=== PATIENT | female | born 1940 | race Caucasian/White ===

== ENCOUNTER 2016-08-16 14:34 | Emergency (ER) | payer OTHER ==
[~2016-08-16] VITALS: Ht 162.6 cm; Wt 60.0 kg
[2016-08-16 14:37] VITALS: BP 196/76; PULSE 94; RESP 12; TEMP 99.1; O2SAT 98
--- NOTE | 2016-08-16 17:09 | PD ---
HPI Chief Complaint: Abdominal Pain Time Seen by Provider: 17:09 Travel History International Travel<30 days: No Contact w/Intl Traveler<30days: No Traveled to known affect area: No History of Present Illness HPI 76-year-old female with newly diagnosed stage IV colon cancer presents to the emergency department for evaluation. Patient was diagnosed at [facility]. Due to insurance, she was unable to start treatment and follow-up with Dr. Limon there. A referral was placed to Dr. Medina here at the [facility]. Patient has been unable to get an appointment but while sitting in the triage area, was called and an appointment is scheduled with him tomorrow. Patient is accompanied by family and they're concerned about the constant loose bowel movements. She has had diarrhea multiple times a day with mild abdominal cramping but no significant pain. It has not been bloody. She has been increasingly weak and they're worried that she may be dehydrated. Patient denies any chest pain or tightness. No difficulty breathing. She does report night sweats and frequent bowel movements. No other symptoms to report. PFSH Past Medical History Cancer: Yes Social History Alcohol Use: No Tobacco Use: No Substance Use: No Allergies-Medications (Allergen,Severity, Reaction): Coded Allergies: No Known Allergies (Unverified , 08/16/16) Reported Meds & Prescriptions Reported Meds & Active Scripts Active Reported Alprazolam 0.25 Mg Tab 0.25 Mg PO TID PRN Pantoprazole (Pantoprazole Sodium) 40 Mg Tab 40 Mg PO DAILY Ferrous Fumarate 324 Mg Tab 325 Mg PO DAILY Zofran (Ondansetron HCl) 4 Mg Tab 4 Mg PO TID PRN Review of Systems Except as stated in HPI: all other systems reviewed are Neg Physical Exam Narrative GENERAL: Well-nourished female patient, in no acute distress SKIN: Warm and dry. Right subclavian port in place. HEAD: Atraumatic. Normocephalic. EYES: Pupils equal and round. No scleral icterus. No injection or drainage. ENT: No nasal bleeding or discharge. Mucous membranes pink and moist. NECK: Trachea midline. No JVD. CARDIOVASCULAR: Elevated rate and rhythm. No murmur appreciated. RESPIRATORY: No accessory muscle use. Clear to auscultation. Breath sounds equal bilaterally. GASTROINTESTINAL: Abdomen soft, non-tender, nondistended. Hepatic and splenic margins not palpable. MUSCULOSKELETAL: No obvious deformities. No clubbing. No cyanosis. No edema. NEUROLOGICAL: Awake and alert. No obvious cranial nerve deficits. Motor grossly within normal limits. Normal speech. PSYCHIATRIC: Appropriate mood and affect; insight and judgment normal. Data Data Last Documented VS Vital Signs Date Time Temp Pulse Resp B/P Pulse Ox O2 Delivery O2 Flow Rate FiO2 08/16/16 19:29 84 16 138/64 96 Room Air 08/16/16 14:37 99.1 Orders Basic Metabolic Panel (Bmp) (08/16/16 16:54) Complete Blood Count With Diff (08/16/16 16:54) Lactic Acid (08/16/16 16:54) Prothrombin Time / Inr (Pt) (08/16/16 16:54) Act Partial Throm Time (Ptt) (08/16/16 16:54) Urinalysis - C+S If Indicated (08/16/16 16:54) Influenzae A/B Antigen (08/16/16 16:54) Iv Access Insert/Monitor (08/16/16 19:51) Ecg Monitoring (08/16/16 19:51) Sodium Chlor 0.9% 1000 Ml Inj (Ns 1000 M (08/16/16 19:51) Labs Laboratory Tests Test 08/16/16 17:20 White Blood Count 14.0 TH/MM3 Red Blood Count 4.13 MIL/MM3 Hemoglobin 9.3 GM/DL Hematocrit 29.5 % Mean Corpuscular Volume 71.5 FL Mean Corpuscular Hemoglobin 22.5 PG Mean Corpuscular Hemoglobin 31.5 % Concent Red Cell Distribution Width 22.7 % Platelet Count 538 TH/MM3 Mean Platelet Volume 7.3 FL Neutrophils (%) (Auto) 74.6 % Lymphocytes (%) (Auto) 13.5 % Monocytes (%) (Auto) 11.1 % Eosinophils (%) (Auto) 0.6 % Basophils (%) (Auto) 0.2 % Neutrophils # (Auto) 10.4 TH/MM3 Lymphocytes # (Auto) 1.9 TH/MM3 Monocytes # (Auto) 1.6 TH/MM3 Eosinophils # (Auto) 0.1 TH/MM3 Basophils # (Auto) 0.0 TH/MM3 CBC Comment AUTO DIFF Differential Comment AUTO DIFF CONFIRMED Platelet Estimate HIGH Platelet Morphology Comment NORMAL Ovalocytes 1+ Prothrombin Time 12.7 SEC Prothromb Time International 1.1 RATIO Ratio Activated Partial 31.9 SEC Thromboplast Time Sodium Level 133 MEQ/L Potassium Level 3.6 MEQ/L Chloride Level 96 MEQ/L Carbon Dioxide Level 28.4 MEQ/L Anion Gap 9 MEQ/L Blood Urea Nitrogen 7 MG/DL Creatinine 0.55 MG/DL Estimat Glomerular Filtration 108 ML/MIN Rate Random Glucose 110 MG/DL Lactic Acid Level 1.4 mmol/L Calcium Level 8.7 MG/DL MDM Medical Decision Making Medical Screen Exam Complete: Yes Emergency Medical Condition: Yes Medical Record Reviewed: Yes Differential Diagnosis Metastatic disease versus electrolyte abnormality versus gastroenteritis versus influenza Narrative Course 76-year-old female presents to emergency department for evaluation. Workup was initiated in triage. Once a medical bed becomes available, patient will be transferred and care assumed by the provider. Condition: Stable Dejah Vera Aug 16, 2016 17:09
[2016-08-16 17:55] LABS: AUTOMATED NEUTROPHIL # 10.4 TH/MM3 (1.8-7.7); BASOPHIL % 0.2 % (0.0-2.0); EOSINOPHIL # 0.1 TH/MM3 (0-0.4); EOSINOPHIL % 0.6 % (0.0-4.0); HEMATOCRIT 29.5 % (35.0-46.0); LYMPH % 13.5 % (9.0-44.0); LYMPHOCYTE # 1.9 TH/MM3 (1.0-4.8); MEAN CELL VOLUME 71.5 FL (80.0-100.0); MEAN CORPUSCULAR HEMOGLOBIN 22.5 PG (27.0-34.0); MEAN CORPUSCULAR HGB CONC 31.5 % (32.0-36.0); MONO % 11.1 % (0.0-8.0); NEUT % 74.6 % (16.0-70.0); PLATELET COUNT 538 TH/MM3 (150-450); RED BLOOD COUNT 4.13 MIL/MM3 (4.00-5.30); RED CELL DISTRIBUTION WIDTH 22.7 % (11.6-17.2)
[2016-08-16 17:57] LABS: HEMO FLAGS AUTO DIFF
[2016-08-16 18:08] LABS: BICARBONATE 28.4 MEQ/L (21.0-32.0); POTASSIUM 3.6 MEQ/L (3.5-5.1)
[2016-08-16 18:11] LABS: APTT (PATIENT) 31.9 SEC (24.3-30.1); INTERNATIONAL NORMALIZED RATIO 1.1 RATIO; PROTHROMBIN TIME - PATIENT 12.7 SEC (9.8-11.6)
[2016-08-16 18:20] LABS: OVALOCYTES 1+ (NORMAL); PLATELET ESTIMATE SMEAR HIGH (NORMAL); PLATELET MORPHOLOGY NORMAL (NORMAL); SCAN/DIFF AUTO DIFF CONFIRMED
[2016-08-16 19:29] VITALS: BP 138/64; PULSE 84; RESP 16; O2SAT 96
[2016-08-16] MEDS ORDERED: ALPR0.25 PO (19:43)
[2016-08-16] MEDS ORDERED: PANT40TA3 PO (19:43)
[2016-08-16] MEDS ORDERED: FERR324T8 PO (19:43)
[2016-08-16] MEDS ORDERED: ZOFR4TAB PO (19:43)
[2016-08-16] MEDS ORDERED: SODIUM CHLOR 0.9% 1000 ML INJ 1,000 ML IV SCH (19:51)
--- NOTE | 2016-08-16 20:33 | PD ---
Data Data Last Documented VS Vital Signs Date Time Temp Pulse Resp B/P Pulse Ox O2 Delivery O2 Flow Rate FiO2 08/16/16 19:29 84 16 138/64 96 Room Air 08/16/16 14:37 99.1 Orders Basic Metabolic Panel (Bmp) (08/16/16 16:54) Complete Blood Count With Diff (08/16/16 16:54) Lactic Acid (08/16/16 16:54) Prothrombin Time / Inr (Pt) (08/16/16 16:54) Act Partial Throm Time (Ptt) (08/16/16 16:54) Urinalysis - C+S If Indicated (08/16/16 16:54) Influenzae A/B Antigen (08/16/16 16:54) Iv Access Insert/Monitor (08/16/16 19:51) Ecg Monitoring (08/16/16 19:51) Sodium Chlor 0.9% 1000 Ml Inj (Ns 1000 M (08/16/16 19:51) Labs Laboratory Tests Test 08/16/16 17:20 White Blood Count 14.0 TH/MM3 Red Blood Count 4.13 MIL/MM3 Hemoglobin 9.3 GM/DL Hematocrit 29.5 % Mean Corpuscular Volume 71.5 FL Mean Corpuscular Hemoglobin 22.5 PG Mean Corpuscular Hemoglobin 31.5 % Concent Red Cell Distribution Width 22.7 % Platelet Count 538 TH/MM3 Mean Platelet Volume 7.3 FL Neutrophils (%) (Auto) 74.6 % Lymphocytes (%) (Auto) 13.5 % Monocytes (%) (Auto) 11.1 % Eosinophils (%) (Auto) 0.6 % Basophils (%) (Auto) 0.2 % Neutrophils # (Auto) 10.4 TH/MM3 Lymphocytes # (Auto) 1.9 TH/MM3 Monocytes # (Auto) 1.6 TH/MM3 Eosinophils # (Auto) 0.1 TH/MM3 Basophils # (Auto) 0.0 TH/MM3 CBC Comment AUTO DIFF Differential Comment AUTO DIFF CONFIRMED Platelet Estimate HIGH Platelet Morphology Comment NORMAL Ovalocytes 1+ Prothrombin Time 12.7 SEC Prothromb Time International 1.1 RATIO Ratio Activated Partial 31.9 SEC Thromboplast Time Sodium Level 133 MEQ/L Potassium Level 3.6 MEQ/L Chloride Level 96 MEQ/L Carbon Dioxide Level 28.4 MEQ/L Anion Gap 9 MEQ/L Blood Urea Nitrogen 7 MG/DL Creatinine 0.55 MG/DL Estimat Glomerular Filtration 108 ML/MIN Rate Random Glucose 110 MG/DL Lactic Acid Level 1.4 mmol/L Calcium Level 8.7 MG/DL [facility] Medical Record Reviewed: Yes Supervised Visit with GLEN: Yes Narrative Course I, Dr. Brian, have reviewed the advance practice practitioner's documentation and am in agreement, met with the patient face to face, made the diagnosis, and the medical decision making was done by me. *My assessment and Findings: Please refer to the mid-level provider note. The patient has an appointment with Dr. Medina tomorrow. Any oral intake tends to cause diarrhea. The patient reports a hemoglobin 7.5 minutes lowest while she was admitted at the [facility] and diagnosed with cancer. She received a unite of packed cells and Hb increased to 8.6. CBC & BMP Diagram 08/16/16 17:20 INR 1.1 Patient received a liter of saline. She is quite agreeable to plan to go home. Reassurance provided. Return precautions discussed. Diagnosis Primary Impression: Diarrhea Qualified Code: R19.7 - Diarrhea, unspecified type Additional Impression: Dehydration with hyponatremia Referrals: Ulysses Medina MD 1 day Additional Instruction: You have a choice when it comes to health care, and we are glad that you chose [facility]. Hopefully, we have met your expectations on today's visit. You are welcome to return to [facility] at any time, as we are committed to meeting the health care needs of our community. Med/Other Pt SpecificInfo: No Change to Meds Disposition: 01 DISCHARGE HOME Condition: Stable Joseph Brian MD Aug 16, 2016 20:32
== END 2016-08-16 20:53 | disposition home or self-care (01) ==
LOC: NEPE 14:34
DX: C18.9 Malignant neoplasm of colon, unspecified (principal); E87.1 Hypo-osmolality and hyponatremia; E86.0 Dehydration; R10.9 Unspecified abdominal pain; R19.7 Diarrhea, unspecified
CPT/HCPCS: 80048; 83605; 85025; 85610; 85730; 87804; 99284; J7030

== ENCOUNTER 2017-01-16 14:56 | Inpatient (IN) | payer OTHER, MEDICARE ==
[~2017-01-16] VITALS: Ht 152.4 cm; Wt 50.5 kg
[~2017-01-16 14:56] MED LIST: ALPR0.25 PO; FERR324T8 PO; PANT40TA3 PO; ZOFR4TAB PO
[2017-01-16 14:59] VITALS: BP 147/79; PULSE 124; RESP 20; TEMP 99.8; O2SAT 95
[2017-01-16] MEDS ORDERED: SODIUM CHLOR 0.9% 1000 ML INJ 1,000 ML IV SCH ×2 (15:11→16:51)
[2017-01-16] MEDS ORDERED: CEFEPIME INJ 2,000 MG in SODIUM CHLORIDE 0.9% INJ 100 ML IV ONE (15:30)
[2017-01-16] MEDS ORDERED: ACETAMINOPHEN 325 MG TAB PO ONE (15:30)
--- NOTE | 2017-01-16 15:40 | PD ---
HPI Chief Complaint: Fever Time Seen by Provider: 15:35 Travel History International Travel<30 days: No Contact w/Intl Traveler<30days: No Traveled to known affect area: No History of Present Illness HPI 76-year-old female that presents to the ED for evaluation of fever. Patient has a history of colon cancer that has metastasized to her liver. Patient undergoes chemotherapy by Dr. Osman and last and she had chemotherapy was on Monday but per patient she gets up 48 hour infusion the last until . On was her last dose. Patient usually gets booster for her immune system on Tuesdays after her chemotherapy on the week after and she was actually supposed to get this today but the office she was noted to have 102 fever. Patient was brought here for evaluation. Dr. Osman apparently was made aware of the findings who is the one who recommended patient come in here. She reports that she has no cough. She does have some runny nose. She denies any symptoms yesterday. She states compliance with her medications and takes no blood thinners. Patient yesterday complained of some lower abdominal pain and they were concerned that she could be constipated as she's had this before. Patient was given a dictation to help with this with no relief. Per patient today she does complain of some lower abdominal pain. She denies any urinary issues. She did have a bowel movement yesterday. Has had no surgeries on the lower abdomen for the cancer. Denies any other symptoms at this time. Has not been given anything for the fever. Per patient her discomfort is 3 out of 10. Most of the history is obtained from the family members as patient herself appears to be somewhat weak. PFSH Past Medical History Anemia: Yes Anxiety: Yes Cancer: Yes (colon ca WITH METS) Chemotherapy: Yes Ulcer: Yes (gastric) : 6 Para: 3 Dilation and Curettage (D&C): Yes Past Surgical History Other Surgery: Yes (PORT PLACEMENT) Social History Alcohol Use: No Tobacco Use: No Substance Use: No Allergies-Medications (Allergen,Severity, Reaction): Coded Allergies: No Known Allergies (Unverified , 08/16/16) Reported Meds & Prescriptions Reported Meds & Active Scripts Active Reported Alprazolam 0.25 Mg Tab 0.25 Mg PO TID PRN Pantoprazole (Pantoprazole Sodium) 40 Mg Tab 40 Mg PO DAILY Ferrous Fumarate 324 Mg Tab 325 Mg PO DAILY Zofran (Ondansetron HCl) 4 Mg Tab 4 Mg PO TID PRN Review of Systems Except as stated in HPI: all other systems reviewed are Neg Physical Exam Narrative GENERAL: SKIN: Warm and dry. HEAD: Atraumatic. Normocephalic. EYES: Pupils equal and round 4 mm reactive and accommodation. No scleral icterus. No injection or drainage. ENT: No nasal bleeding or discharge. Mucous membranes pink and moist. Tongue is midline. No uvula deviation. NECK: Trachea midline. No JVD. CARDIOVASCULAR: Regular rate and rhythm. No murmurs, S3, S4. RESPIRATORY: No accessory muscle use. Clear to auscultation. Breath sounds equal bilaterally. GASTROINTESTINAL: Abdomen soft, non-tender, nondistended. Hepatic and splenic margins not palpable. MUSCULOSKELETAL: Extremities without clubbing, cyanosis, or edema. No obvious deformities. Full range of motion of the upper and lower extremities bilaterally. 2+ pulses bilaterally. NEUROLOGICAL: Awake and alert. No obvious cranial nerve deficits. Motor grossly within normal limits. Five out of 5 muscle strength in the arms and legs. Normal speech. PSYCHIATRIC: Appropriate mood and affect; insight and judgment normal. Data Data Last Documented VS Vital Signs Date Time Temp Pulse Resp B/P Pulse Ox O2 Delivery O2 Flow Rate FiO2 01/16/17 15:16 Room Air 01/16/17 14:59 99.8 124 20 147/79 95 Orders Electrocardiogram (01/16/17 15:11) Complete Blood Count With Diff (01/16/17 15:11) Comprehensive Metabolic Panel (01/16/17 15:11) Prothrombin Time / Inr (Pt) (01/16/17 15:11) Act Partial Throm Time (Ptt) (01/16/17 15:11) Blood Culture (01/16/17 15:11) Lipase (01/16/17 15:11) Urinalysis - C+S If Indicated (01/16/17 15:11) Magnesium (Mg) (01/16/17 15:11) Chest, Single Ap (01/16/17 15:11) Ct Abd/Pel W/O Iv Contrast (01/16/17 15:11) Iv Access Insert/Monitor (01/16/17 15:11) Ecg Monitoring (01/16/17 15:11) Oximetry (01/16/17 15:11) Lactic Acid (01/16/17 15:11) Sodium Chlor 0.9% 1000 Ml Inj (Ns 1000 M (01/16/17 15:11) Cefepime Inj (Maxipime Inj) (01/16/17 15:30) Acetaminophen (Tylenol) (01/16/17 15:30) Sodium Chlor 0.9% 1000 Ml Inj (Ns 1000 M (01/16/17 16:51) Admit Order (Ed Use Only) (01/16/17 17:00) Labs Laboratory Tests Test 01/16/17 01/16/17 15:30 16:05 White Blood Count 7.4 TH/MM3 Red Blood Count 3.70 MIL/MM3 Hemoglobin 11.6 GM/DL Hematocrit 34.4 % Mean Corpuscular Volume 93.0 FL Mean Corpuscular Hemoglobin 31.5 PG Mean Corpuscular Hemoglobin 33.9 % Concent Red Cell Distribution Width 15.9 % Platelet Count 459 TH/MM3 Mean Platelet Volume 6.6 FL Neutrophils (%) (Auto) 75.8 % Lymphocytes (%) (Auto) 21.6 % Monocytes (%) (Auto) 2.5 % Eosinophils (%) (Auto) 0.0 % Basophils (%) (Auto) 0.1 % Neutrophils # (Auto) 5.6 TH/MM3 Lymphocytes # (Auto) 1.6 TH/MM3 Monocytes # (Auto) 0.2 TH/MM3 Eosinophils # (Auto) 0.0 TH/MM3 Basophils # (Auto) 0.0 TH/MM3 CBC Comment AUTO DIFF Differential Total Cells 100 Counted Neutrophils % (Manual) 76 % Band Neutrophils % 1 % Lymphocytes % 21 % Monocytes % 1 % Neutrophils # (Manual) 5.8 TH/MM3 Metamyelocytes 1 % Nucleated Red Blood Cells 1 /100 WBC Differential Comment FINAL DIFF MANUAL Platelet Estimate HIGH Platelet Morphology Comment NORMAL Prothrombin Time 12.7 SEC Prothromb Time International 1.1 RATIO Ratio Activated Partial 30.8 SEC Thromboplast Time Sodium Level 133 MEQ/L Potassium Level 4.3 MEQ/L Chloride Level 96 MEQ/L Carbon Dioxide Level 25.8 MEQ/L Anion Gap 11 MEQ/L Blood Urea Nitrogen 8 MG/DL Creatinine 0.63 MG/DL Estimat Glomerular Filtration 92 ML/MIN Rate Random Glucose 94 MG/DL Lactic Acid Level 2.4 mmol/L Calcium Level 8.6 MG/DL Magnesium Level 1.5 MG/DL Total Bilirubin 0.7 MG/DL Aspartate Amino Transf 30 U/L (AST/SGOT) Alanine Aminotransferase 15 U/L (ALT/SGPT) Alkaline Phosphatase 246 U/L Total Protein 6.2 GM/DL Albumin 2.1 GM/DL Lipase 86 U/L Urine Color YELLOW Urine Turbidity CLEAR Urine pH 5.5 Urine Specific [place] 1.013 Urine Protein NEG mg/dL Urine Glucose (UA) NEG mg/dL Urine Ketones NEG mg/dL Urine Occult Blood NEG Urine Nitrite NEG Urine Bilirubin NEG Urine Urobilinogen LESS THAN 2.0 MG/DL Urine Leukocyte Esterase NEG Urine WBC LESS THAN 1 /hpf Urine Squamous Epithelial 1 /hpf Cells Urine Mucus FEW /lpf Microscopic Urinalysis Comment CULT NOT INDICATED MDM Medical Decision Making Medical Screen Exam Complete: Yes Emergency Medical Condition: Yes Medical Record Reviewed: Yes Interpretation(s) CBC & BMP Diagram 01/16/17 15:30 LFTS WNL Lipase WNL Lactic acid of 2.6 UA negative coags WNL Last Impressions Chest X-Ray 01/16/171510 Signed Impressions: Service Date/Time: Monday, January 16, 2017 15:28 - CONCLUSION: 1. No acute cardiopulmonary disease. Dio Perez MD Abdomen/Pelvis CT 01/16/171510 Signed Impressions: Service Date/Time: Monday, January 16, 2017 15:34 - CONCLUSION: Large confluent in the liver. This probably represents metastatic disease. Lack of intravenous contrast excludes portal vein thrombosis which have the similar appearance. Prasanth Vilchis MD FACR Differential Diagnosis Neuthrophenic fever versus sepsis versus UTI versus constipation versus pneumonia versus URI versus obstruction versus perforation Narrative Course 76-year-old female that presents to the ED for evaluation of fever and being a chemotherapy patient. Patient was properly examined and was found to have signs and symptoms concerning for sepsis. Also concern for neutropenic fever. Patient will have blood work and sepsis workup as well as CT of the abdomen. Patient was started on cefepime and IV fluids. Patient given Tylenol for her fever. Patient's temperature here was 99.7. Patient did have reported temperature at the office of the 102. Labs and imaging came back and show what appears to be lactic acidosis otherwise unremarkable. No sign of infection that we can tell. Patient swallows account is actually reasonably. Patient still tachycardic on exam. Patient is on the low 100s. Patient was given 2 boluses of fluid and cefepime. My recommendation is because of patient's recent chemotherapy and fever is to admit the patient for further evaluation. Patient is in agreement with this plan. Case discussed with Dr. Elias equal agrees to admission. Multiple attempts were made to get in contact with Dr. Medina who is the patient's oncologist but he has not been able to be reached. Consult was placed to him. Sepsis Criteria SIRS Criteria (2 or more): Heart rate over 90 Diagnosis Primary Impression: Fever, unknown origin Additional Impressions: Colon cancer metastasized to liver Lactic acid acidosis Admitting Information Admitting Physician Requests: Observation Eleazar Gonzalez Jan 16, 2017 15:40
--- NOTE | 2017-01-16 15:53 | RADRPT ---
EXAM DATE/TIME: 01/16/2017 15:28 [facility] COMPARISON: No previous studies available for comparison. INDICATIONS : Fever. MEDICAL HISTORY : None. SURGICAL HISTORY : None. ENCOUNTER: Initial ACUITY: 1 day PAIN SCORE: 0/10 LOCATION: Bilateral chest FINDINGS: A single view of the chest demonstrates the lungs to be symmetrically aerated without evidence of mas s, infiltrate or effusion. Right IJ port in good position. The cardiomediastinal contours are unrema rkable. Osseous structures are intact. CONCLUSION: 1. No acute cardiopulmonary disease. Dio Perez MD on January 16, 2017 at 15:50 Board Certified Radiologist. This report was verified electronically.
--- NOTE | 2017-01-16 15:53 | RADRPT ---
EXAM DATE/TIME: 01/16/2017 15:34 [facility] COMPARISON: No previous studies available for comparison. INDICATIONS : Lower abdomen pain for two days. ORAL CONTRAST: No oral contrast ingested. RADIATION DOSE: 9.96 CTDIvol (mGy) MEDICAL HISTORY : Carcinoma, colon. gastric ulcer SURGICAL HISTORY : None. ENCOUNTER: Initial ACUITY: 2 days PAIN SCALE: 7/10 LOCATION: Bilateral abdomen TECHNIQUE: Volumetric scanning of the abdomen and pelvis was performed. Using automated exposure control and ad justment of the mA and/or kV according to patient size, radiation dose was kept as low as reasonably achievable to obtain optimal diagnostic quality images. DICOM format image data is available electro nically for review and comparison. FINDINGS: The lung base is are clear. There is no pericardial effusion As the large mass in the liver suspicious for metastatic disease. Gallbladder is contracted containing some calcification gallbladder wall. Spleen is unremarkable. Pancreas and adrenals appear normal. The right kidney is unremarkable As the low-density mass in the left kidney is probably cyst evaluated on today's study. There is moderate bowel wall thickening present in the ascending colon suggestive of colitis. There is no free air. CONCLUSION: Large confluent in the liver. This probably represents metastatic disease. Lack of intravenous contrast excludes portal vein thrombosis which have the similar appearance. Prasanth Vilchis MD FACR on January 16, 2017 at 15:47 Board Certified Radiologist. This report was verified electronically.
[2017-01-16 16:03] LABS: AUTOMATED NEUTROPHIL # 5.6 TH/MM3 (1.8-7.7); BASOPHIL % 0.1 % (0.0-2.0); HEMATOCRIT 34.4 % (35.0-46.0); LYMPH % 21.6 % (9.0-44.0); LYMPHOCYTE # 1.6 TH/MM3 (1.0-4.8); MEAN CORPUSCULAR HEMOGLOBIN 31.5 PG (27.0-34.0); MEAN CORPUSCULAR HGB CONC 33.9 % (32.0-36.0); MONO % 2.5 % (0.0-8.0); NEUT % 75.8 % (16.0-70.0); PLATELET COUNT 459 TH/MM3 (150-450); RED CELL DISTRIBUTION WIDTH 15.9 % (11.6-17.2); WHITE BLOOD COUNT 7.4 TH/MM3 (4.0-11.0)
[2017-01-16 16:05] LABS: HEMO FLAGS AUTO DIFF
[2017-01-16 16:20] LABS: ALT (GPT) 15 U/L (10-53); ANION GAP 11 MEQ/L (5-15); AST (GOT) 30 U/L (15-37); BICARBONATE 25.8 MEQ/L (21.0-32.0); BLOOD UREA NITROGEN 8 MG/DL (7-18); CHLORIDE 96 MEQ/L (98-107); GLOMERULAR FILTRATION RATE 92 ML/MIN (>89); MAGNESIUM 1.5 MG/DL (1.5-2.5); POTASSIUM 4.3 MEQ/L (3.5-5.1); SODIUM (NA) 133 MEQ/L (136-145)
[2017-01-16 16:22] LABS: ALKALINE PHOSPHATASE 246 U/L (45-117); TOTAL BILIRUBIN ADULT 0.7 MG/DL (0.2-1.0)
[2017-01-16 16:34] LABS: BLOOD, URINE NEG (NEG); COMMENT (UR) CULT NOT INDICATED; CULTURE IF INDICATED CULT NOT INDICATED; GLUCOSE,URINE NEG (NEG); KETONE, URINE NEG (NEG); MUCUS URINE FEW /lpf (OCC); NITRITE,URINE NEG (NEG); PH, URINE 5.5 (5.0-8.5); SQUAMOUS EPITHELIAL CELL URINE 1 /hpf (0-5); URINE COLOR YELLOW (YELLW/STRAW)
[2017-01-16 16:41] LABS: APTT (PATIENT) 30.8 SEC (24.3-30.1); INTERNATIONAL NORMALIZED RATIO 1.1 RATIO; PROTHROMBIN TIME - PATIENT 12.7 SEC (9.8-11.6)
[2017-01-16 16:59] LABS: BANDS 1 % (0-6); CORRECTED NUCLEATED RBC 1 /100 WBC (0-0); METAMYELOCYTES 1 % (0-1); NEUTROPHIL # MANUAL DIFF 5.8 TH/MM3 (1.8-7.7); POLYS (SEG NEUTROPHILS) 76 % (16-70); WBC DIFF SAMPLE 100
[2017-01-16 17:00] LABS: PLATELET ESTIMATE SMEAR HIGH (NORMAL); PLATELET MORPHOLOGY NORMAL (NORMAL); SCAN/DIFF FINAL DIFF MANUAL
--- NOTE | 2017-01-16 17:36 | HHI.HP ---
[facility] José Luis Trinh Do, MD Admission Diagnosis fever of unknown source, lactic acidosis, chemo patient Diagnoses: (1) Fever, unknown origin (2) Lactic acid acidosis Chief Complaint: fever Travel History International Travel<30 Days: No Contact w/Intl Traveler <30 Da: No Traveled to Known Affected Are: No Sepsis Criteria SIRS Criteria (2 or more): Heart rate over 90 History of Present Illness Written by SERGE Hernandez acting as scribe for [Tea] on 01/16/17 at 17: 34. 76 y/o female with a history of anemia, anxiety, colorectal ca with metastasized to liver. Patient does under go chemo with Dr. Medina and last treatment was on . Patient usually gets booster for her immune system on Tuesdays after her chemotherapy on the week after and she was actually supposed to get this today. She was noted to have a fever of 102 in the office today. Dr. Osman recommended her come to the hospital for evaluation. Patient states prior to today she has just been feeling fatigued, last fever was in September that she had. She complains of sores inside of her mouth that started when she started chemo. She denies any chest pain, sob, or cough. She does have some abdominal pains that go across the lower abdomen with associated constipation. The pain does go away when she has a bowel movement. She takes a stool softener as needed for constipation. Denies any recent antibiotic use. Her appetite is better than what it has been, she takes in smaller meals throughout the day with meal shakes. PCP: Dr Fisher Oncologist: Dr. Medina Review of Systems Constitutional: COMPLAINS OF: Fatigue, Fever, Chills, DENIES: Diaphoretic episodes, Weight gain, Weight loss, Dizziness, Change in appetite, Night Sweats Endocrine: DENIES: Abnorml menstrual pattern, Heat/cold intolerance, Polydipsia , Polyuria, Polyphagia Eyes: DENIES: Blurred vision, Diplopia, Eye inflammation, Eye pain, Vision loss , Photosensitivity, Double Vision Ears, nose, mouth, throat: DENIES: Tinnitus, Hearing loss, Vertigo, Nasal discharge, Oral lesions, Throat pain, Hoarseness, Ear Pain, Running Nose, Epistaxis, Sinus Pain, Toothache, Odynophagia Respiratory: DENIES: Apneas, Cough, Snoring, Wheezing, Hemoptysis, Sputum production, Shortness of breath Cardiovascular: DENIES: Chest pain, Lower Extremity Edema Gastrointestinal: COMPLAINS OF: Abdominal pain, Constipation, DENIES: Diarrhea , Nausea, Vomiting Genitourinary: DENIES: Abnormal vaginal bleeding, Dysmenorrhea, Dyspareunia, Sexual dysfunction, Urinary frequency, Urinary incontinence, Urgency, Hematuria , Dysuria, Nocturia, Vaginal discharge Musculoskeletal: DENIES: Joint pain, Muscle aches, Stiffness, Joint Swelling, Back pain, Neck pain Integumentary: DENIES: Abnormal pigmentation, Pruritus, Rash, Nail changes, Breast masses, Breast skin changes, Nipple discharge Hematologic/lymphatic: DENIES: Lymphadenopathy Immunologic/allergic: DENIES: Eczema, Urticaria Neurologic: COMPLAINS OF: Localized weakness, DENIES: Headache Psychiatric: DENIES: Anxiety, Confusion, Mood changes, Depression, Hallucinations, Agitation, Suicidal Ideation, Homicidal Ideation, Delusions Past Family Social History Past Medical History Anemia Anxiety Colorectal Ca with Mets to liver and lung, undergoes chemotherapy Gastric ulcers Past Surgical History Port placement D&C Reported Medications Reported Meds & Active Scripts Active Reported Alprazolam 0.25 Mg Tab 0.25 Mg PO TID PRN Pantoprazole (Pantoprazole Sodium) 40 Mg Tab 40 Mg PO DAILY Ferrous Fumarate 324 Mg Tab 325 Mg PO DAILY Zofran (Ondansetron HCl) 4 Mg Tab 4 Mg PO TID PRN Allergies: Coded Allergies: No Known Allergies (Unverified , 08/16/16) Active Ordered Medications Current Medications Medications (Trade) Dose Ordered Sig/[place] Route Start Time Stop Time Status Last Admin (NS 1000 ml Inj) 1,000 ml @ 1,000 mls/hr Q1H IV 01/16/17 16:51 01/16/17 17:50 Family History Mom: stomach issues Dad: unsure Social History Tobacco use: Quit one year ago, prior a few a day Alcohol use: Denies Illicit drug use: Denies Physical Exam Vital Signs Vital Signs Date Time Temp Pulse Resp B/P Pulse Ox O2 Delivery O2 Flow Rate FiO2 01/16/17 15:16 Room Air 01/16/17 14:59 99.8 124 20 147/79 95 Physical Exam GENERAL: This is a thin patient who is fatigued SKIN: No rashes, ecchymoses or lesions. Cool and dry. HEAD: Atraumatic. Normocephalic. EYES: Pupils equal round and reactive. Extraocular motions intact. ENT: Nose without bleeding, purulent drainage or septal hematoma. Airway patent. Inner mouth sores. NECK: Trachea midline. No JVD or lymphadenopathy. CARDIOVASCULAR: Regular rate and rhythm without murmurs, gallops, or rubs. RESPIRATORY: Clear to auscultation. Breath sounds equal bilaterally. No wheezes , rales, or rhonchi. GASTROINTESTINAL: Abdomen soft, non-tender, nondistended. No hepato-splenomegaly , or palpable masses. No guarding. MUSCULOSKELETAL: Extremities without clubbing, cyanosis, or edema. No joint tenderness, effusion, or edema noted. No calf tenderness. NEUROLOGICAL: Awake and alert.Motor and sensory grossly within normal limits. Normal speech. Laboratory Laboratory Tests Test 01/16/17 01/16/17 15:30 16:05 White Blood Count 7.4 Red Blood Count 3.70 Hemoglobin 11.6 Hematocrit 34.4 Mean Corpuscular Volume 93.0 Mean Corpuscular Hemoglobin 31.5 Mean Corpuscular Hemoglobin 33.9 Concent Red Cell Distribution Width 15.9 Platelet Count 459 Mean Platelet Volume 6.6 Neutrophils (%) (Auto) 75.8 Lymphocytes (%) (Auto) 21.6 Monocytes (%) (Auto) 2.5 Eosinophils (%) (Auto) 0.0 Basophils (%) (Auto) 0.1 Neutrophils # (Auto) 5.6 Lymphocytes # (Auto) 1.6 Monocytes # (Auto) 0.2 Eosinophils # (Auto) 0.0 Basophils # (Auto) 0.0 CBC Comment AUTO DIFF Differential Total Cells 100 Counted Neutrophils % (Manual) 76 Band Neutrophils % 1 Lymphocytes % 21 Monocytes % 1 Neutrophils # (Manual) 5.8 Metamyelocytes 1 Nucleated Red Blood Cells 1 Differential Comment FINAL DIFF MANUAL Platelet Estimate HIGH Platelet Morphology Comment NORMAL Prothrombin Time 12.7 Prothromb Time International 1.1 Ratio Activated Partial 30.8 Thromboplast Time Sodium Level 133 Potassium Level 4.3 Chloride Level 96 Carbon Dioxide Level 25.8 Anion Gap 11 Blood Urea Nitrogen 8 Creatinine 0.63 Estimat Glomerular Filtration 92 Rate Random Glucose 94 Lactic Acid Level 2.4 Calcium Level 8.6 Magnesium Level 1.5 Total Bilirubin 0.7 Aspartate Amino Transf 30 (AST/SGOT) Alanine Aminotransferase 15 (ALT/SGPT) Alkaline Phosphatase 246 Total Protein 6.2 Albumin 2.1 Lipase 86 Urine Color YELLOW Urine Turbidity CLEAR Urine pH 5.5 Urine Specific [place] 1.013 Urine Protein NEG Urine Glucose (UA) NEG Urine Ketones NEG Urine Occult Blood NEG Urine Nitrite NEG Urine Bilirubin NEG Urine Urobilinogen LESS THAN 2.0 Urine Leukocyte Esterase NEG Urine WBC LESS THAN 1 Urine Squamous Epithelial 1 Cells Urine Mucus FEW Microscopic Urinalysis Comment CULT NOT INDICATED Date/Time Procedure Status Source Growth 01/16/17 15:30 Aerobic Blood Culture Received Blood Peripheral Pending 01/16/17 15:30 Anaerobic Blood Culture Received Blood Peripheral Pending Result Diagram: 01/16/17 1530 01/16/17 1530 Imaging Last Impressions Chest X-Ray 01/16/17 1511 Signed Impressions: Service Date/Time: Monday, January 16, 2017 15:28 - CONCLUSION: 1. No acute cardiopulmonary disease. Dio Perez MD Abdomen/Pelvis CT 01/16/17 1511 Signed Impressions: Service Date/Time: Monday, January 16, 2017 15:34 - CONCLUSION: Large confluent in the liver. This probably represents metastatic disease. Lack of intravenous contrast excludes portal vein thrombosis which have the similar appearance. Prasanth Vilchis MD FACR Assessment and Plan Problem List: (1) Fever, unknown origin ICD Code: R50.9 Status: Acute (2) Lactic acid acidosis ICD Code: E87.2 Status: Acute Assessment and Plan 76 y/o female with a history of anemia, anxiety, colon ca with metastasized to liver. Patient does under go chemo with Dr. Osman and last treatment was on . Patient usually gets booster for her immune system on Tuesdays after her chemotherapy on the week after and she was actually supposed to get this today. She was noted to have a fever of 102 in the office today. Fever, unknown origin with lactic acidosis, no leukocytosis, UA negative, immunocompromised on chemotherapy Lactic acid 2.4, Tmax 102 prior to coming to hospital -NS Bolus given in ED, Cont IVF with NS @ 84ml/hr -Tylenol for fever -Blood cultures pending -CBC in AM -Cefepime IV given in ED, Cont Cefepime IV Q8hrs -Repeat lactic acid tonight -Monitor on telemetry until lactic acid is WNL Thrush with mouth sores, suspected due to chemo -Nystatin liquid swish Q8hrs Colon CA with mets to liver, chronic -Consult oncology -Cont Marinol for appetite -Vegetarian diet with ensure DVT prophylaxis: SCDs This note was transcribed by maeve Choi. I, Dr. Randolph Metcalf personally performed the history, physical exam, and medical decision making; and confirmed the accuracy of the information in the transcribed note. Authenticated by Dr. Randolph Metcalf on 01/16/17 at 17:34. Code Status Full code Discussed Condition With Patient, RN and ED physician Cassandra Choi Jan 16, 2017 17:36 Randolph Metcalf MD Jan 16, 2017 17:36
[2017-01-16] MEDS ORDERED: ONDANSETRON HCL 4 MG/2 ML VIAL IVP PRN (18:00)
[2017-01-16] MEDS ORDERED: ACETAMINOPHEN 325 MG TAB PO PRN (18:00)
[2017-01-16] MEDS: SODIUM CHLOR 0.9% 1000 ML INJ 1,000 ML IV SCH (19:39)
[2017-01-16 19:40] VITALS: BP 145/84; PULSE 96; RESP 18; O2SAT 98
[2017-01-16] MEDS: NYSTATIN SUSP 500,000 U/5 ML CUP SWISH-SWAL SCH ×2 (19:42→21:00)
[2017-01-16] MEDS ORDERED: DICY20TA10 PO (19:43)
[2017-01-16] MEDS ORDERED: CIPR-9 PO (19:43)
[2017-01-16] MEDS ORDERED: POTA10TA2 PO (19:43)
[2017-01-16] MEDS ORDERED: MARI5CAP PO (19:43)
[2017-01-16] MEDS: LACTOBACILLUS ACIDOPHILUS TAB PO SCH (21:00)
[2017-01-16 21:37] VITALS: BP 139/70
[2017-01-16 22:34] VITALS: PULSE 82
[2017-01-17] VITALS (7 sets, daily range): BP systolic 127–191; BP diastolic 66–80; PULSE 78–97; RESP 18–20; TEMP 97.5–101.5; O2SAT 98–99
[2017-01-17] MEDS: CEFEPIME INJ 2,000 MG in SODIUM CHLORIDE 0.9% INJ 100 ML IV SCH ×4 (00:11→23:59)
[2017-01-17] MEDS: SODIUM CHLOR 0.9% 1000 ML INJ 1,000 ML IV SCH ×2 (05:50→18:25)
[2017-01-17] MEDS ORDERED: SODIUM CHLORIDE 0.9% FLUSH 10 ML FLUSH IV FLUSH PRN (06:30)
[2017-01-17] MEDS ORDERED: ENOXAPARIN SODIUM 30 MG/0.3 ML SYRINGE SQ SCH (09:00)
[2017-01-17] MEDS: DRONABINOL 5 MG CAP PO SCH ×2 (09:53→18:25)
[2017-01-17] MEDS: LACTOBACILLUS ACIDOPHILUS TAB PO SCH ×2 (09:54→21:48)
[2017-01-17] MEDS: NYSTATIN SUSP 500,000 U/5 ML CUP SWISH-SWAL SCH ×4 (09:54→21:48)
[2017-01-17] MEDS: PANTOPRAZOLE SOD 40 MG DELAYED RELEASE TAB PO SCH (09:54)
[2017-01-17] MEDS ORDERED: ENALAPRILAT 2.5 MG/2 ML VIAL IV PUSH PRN (11:00)
--- NOTE | 2017-01-17 12:06 | MB ---
cc: TOBIN SKAGGS M.D. DATE OF CONSULTATION January 17, [address] Metcalf REASON FOR CONSULTATION Oncology consulted to render opinion regarding a patient with metastatic colon cancer admitted with febrile illness. HISTORY OF PRESENT ILLNESS The patient is very pleasant 76-year-old female with a history of metastatic rectal cancer currently receiving chemotherapy. She presented to the hospital with increased weakness and fever up to 102. She had cycle #10 of Avastin and FOLFOX last Monday. According to her daughter, the patient was very weak over the weekend and slept through the weekend. Yesterday she was supposed to come to the clinic for her Neupogen injection. She was noted to have low-grade fever in the morning. When she got to the clinic, fever was up to 102. She has generalized weakness. She also has mouth sores. She has intermittent lower abdominal pain when she is constipated but denies any pain at this time. She was sent to the emergency room and subsequently admitted. She was found to have elevated lactic acid. She, however, was not neutropenia. She denies any chills. She denies any headache or visual changes. Denies neck stiffness. Denies any chest pain or palpitations. Denies shortness of breath or cough. No nausea or vomiting. Her last bowel movement was yesterday. Denies any melena, hematochezia, any dysuria or hematuria. PAST MEDICAL HISTORY 1. Metastatic colorectal cancer with metastatic disease in the liver. 2. Anxiety. 3. Anemia. 4. Gastric ulcer. PAST SURGICAL HISTORY 1. Port placement. 2. Upper endoscopy. 3. Tubal ligation. 4. Colonoscopy. 5. Abdominal surgery for peptic ulcer. FAMILY HISTORY Noncontributory. SOCIAL HISTORY Quit tobacco over a year ago. Denies any alcohol use. ALLERGIES No known drug allergy. CURRENT MEDICATIONS 1. Marinol. 2. Protonix. 3. Cefepime. 4. Lactinex. REVIEW OF SYSTEMS CONSTITUTIONAL: Increased weakness. Denies fever or chills. EYES: Denies any blurry vision, double vision. ENT: Has mouth sores. Denies significant sore throat. CARDIOVASCULAR: Denies chest pain or palpitations. RESPIRATORY: Denies shortness of breath or cough. GI: As above. : No dysuria or hematuria. MUSCULOSKELETAL: Denies any pain. HEMATOLOGY: Negative. ENDOCRINE: Negative. DERMATOLOGY: Negative. PSYCHIATRIC: Negative. NEUROLOGIC: Negative. PHYSICAL EXAMINATION VITAL SIGNS: Temperature 97.5, blood pressure 170/80, pulse 80, O2 saturation 99%. GENERAL: She is alert, oriented x 3, in no acute distress. HEENT: Atraumatic, normocephalic. Pupils equal, round, reactive to light. Extraocular muscles intact. No sclerae icterus. Oropharynx - dry mucosa; no lesion or thrush or mucositis. NECK: No thyromegaly. No palpable masses. LYMPHATICS: No palpable cervical, clavicular or axillary lymph nodes. CARDIOVASCULAR: Regular S1 and S2; no murmur. LUNGS: Clear to auscultation bilaterally. ABDOMEN: Soft, nontender. I could not palpate the liver or spleen. EXTREMITY EXAM: No cyanosis, no clubbing, no significant edema, no calf tenderness. BACK: No paravertebral tenderness. SKIN: No rash or petechiae. The right chest port site with no erythema. NEUROLOGIC: Exam nonfocal. LABORATORY DATA Reviewed. ASSESSMENT 1. Metastatic rectal cancer with multiple metastatic lesions in the liver. She also has a nodule in the right lung with mediastinal adenopathy consistent with metastatic disease. 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 She is currently receiving Avastin and FOLFOX chemotherapy. She just completed tenth cycle last . Her CT scan in early December showed the lung mass, mediastinal adenopathy and liver masses all have decreased in size. Her CEA has trended down to about to about 750 from 1700. She appeared to have good response to treatment. She had another CT scan done in the emergency room but it was without contrast. I reviewed the CT scan and it is difficult to compare to her prior CT scan due to lack of contrast but the liver mass does seem a little smaller. There is no clear progression of disease at this time. 2. Febrile illness. She is not neutropenic. CT of the abdomen showed moderate bowel wall thickening in the ascending colon which could be colitis. Clinically she has no diarrhea or significant abdominal pain. She was started on cefepime. She is afebrile this morning. Cultures are all pending. 3. Mild anemia. Hemoglobin has trended up to 11.6. 4. Dehydration due to lack of oral intake. Continue IV fluid. 5. Anorexia. She will continue with the Marinol. 6. DVT prophylaxis. She was started on Lovenox. 7. Thrush, started on Nystatin. RECOMMENDATIONS 1. Continue antibiotic pending blood culture. 2. I do not plan to give her Neupogen at this time as her white blood cell count is normal. 3. Continue to monitor CBC. 4. Continue supportive care. Thank you, Dr. Metcalf, for asking me to see this patient. MD DELISA Wilkinson/ROSARIO /8:19 AM /11:54 AM CA
--- NOTE | 2017-01-17 13:23 | EKG ---
Date Performed: 01/16/2017 Time Performed: 16:49:26 PTAGE: 76 years EKG: SINUS TACHYCARDIA WITH SHORT LA INTERVAL ABNORMAL RHYTHM ECG NO PREVIOUS TRACING DOCTOR: Shun Buckley Interpretating Date/Time 01/17/2017 13:17:37
--- NOTE | 2017-01-17 14:26 | HHI.PR ---
Subjective Remarks Follow-up fever of unknown origin/now watery diarrhea rule out C. difficile colitis 01/17/17-patient seen and examined, currently afebrile since admission however patient with multiple numerous watery stools. Complains of right hand swelling Objective Vitals Vital Signs Date Time Temp Pulse Resp B/P Pulse Ox O2 Delivery O2 Flow Rate FiO2 01/17/17 11:36 87 01/17/17 07:50 97.9 78 20 191/75 98 01/17/17 04:00 97.5 80 18 170/80 99 01/17/17 02:09 16 01/17/17 00:00 98.7 91 18 165/73 99 01/16/17 22:34 82 01/16/17 21:37 88 16 139/70 98 01/16/17 19:40 96 18 145/84 98 Room Air 01/16/17 15:16 Room Air 01/16/17 14:59 99.8 124 20 147/79 95 I/O 01/16/17 01/16/17 01/16/17 01/17/17 01/17/17 01/17/17 07:00 15:00 23:00 07:00 15:00 23:00 Intake Total 360 ml Balance 360 ml Intake Oral 360 ml # Voids 1 # Bowel Movements 4 Result Diagram: 01/16/17 1530 01/16/17 1530 Imaging Last Impressions Chest X-Ray 01/16/17 1511 Signed Impressions: Service Date/Time: Monday, January 16, 2017 15:28 - CONCLUSION: 1. No acute cardiopulmonary disease. Dio Perez MD Abdomen/Pelvis CT 01/16/17 1511 Signed Impressions: Service Date/Time: Monday, January 16, 2017 15:34 - CONCLUSION: Large confluent in the liver. This probably represents metastatic disease. Lack of intravenous contrast excludes portal vein thrombosis which have the similar appearance. Prasanth Vilchis MD FACR Objective Remarks GENERAL: NAD SKIN: Warm and dry. HEAD: Normocephalic. EYES: No scleral icterus. No injection or drainage. NECK: Supple, trachea midline. No JVD or lymphadenopathy. CARDIOVASCULAR: Regular rate and rhythm without murmurs, gallops, or rubs. RESPIRATORY: Breath sounds equal bilaterally. No accessory muscle use. GASTROINTESTINAL: Abdomen soft, non-tender, nondistended. MUSCULOSKELETAL: No cyanosis, or edema. Swollen right hand BACK: Nontender without obvious deformity. No CVA tenderness. A/P Problem List: (1) Fever, unknown origin ICD Code: R50.9 Status: Acute (2) Lactic acid acidosis ICD Code: E87.2 Status: Acute (3) Diarrhea ICD Code: R19.7 Status: Acute (4) C. difficile diarrhea ICD Code: A04.7 Status: Acute Assessment and Plan 76-year-old female with Fever, unknown origin with lactic acidosis, no leukocytosis, UA negative, immunocompromised on chemotherapy Patient now with multiple numerous watery diarrhea raising suspicions for C. difficile -NS Bolus given in ED, Cont IVF with NS @ 84ml/hr -Tylenol for fever -Blood cultures pending -CBC in AM -Cont Cefepime IV Q8hrs Rule out C. difficile diarrhea C. difficile PCR pending and treat accordingly if positive Continue with current treatment with IV fluid, Lactinex Swollen Right hand Doppler to rule out DVT Lactic acidosis Resolved Thrush with mouth sores, suspected due to chemo -Nystatin liquid swish Q8hrs Colon CA with mets to liver, chronic -Appreciate input from oncology -Cont Marinol for appetite -Vegetarian diet with ensure DVT prophylaxis: SCDs Change admission to inpatient Randolph Metcalf MD Jan 17, 2017 14:26
[2017-01-17] MEDS ORDERED: cloNIDine HCL 0.1 MG TAB PO PRN (14:30)
[2017-01-17] MEDS ORDERED: ALTEPLASE RECOMBINANT 2 MG VIAL INTRACATH ONE (14:30)
[2017-01-17 15:07] LABS: C. DIFF EPI 027 PRESUMPTIVE NEGATIVE (NEGATIVE); C. DIFF TOXIN PCR NEGATIVE (NEGATIVE)
[2017-01-17 17:41] LABS: AUTOMATED NEUTROPHIL # 2.4 TH/MM3 (1.8-7.7); BASOPHIL % 0.2 % (0.0-2.0); EOSINOPHIL % 0.1 % (0.0-4.0); HEMO FLAGS DIFF FINAL; LYMPH % 26.5 % (9.0-44.0); LYMPHOCYTE # 0.9 TH/MM3 (1.0-4.8); MEAN CELL VOLUME 92.8 FL (80.0-100.0); MEAN CORPUSCULAR HGB CONC 34.5 % (32.0-36.0); MONO % 3.5 % (0.0-8.0); NEUT % 69.7 % (16.0-70.0); PLATELET COUNT 156 TH/MM3 (150-450); RED BLOOD COUNT 2.69 MIL/MM3 (4.00-5.30); RED CELL DISTRIBUTION WIDTH 15.5 % (11.6-17.2); WHITE BLOOD COUNT 3.5 TH/MM3 (4.0-11.0)
--- NOTE | 2017-01-17 17:59 | RADRPT ---
EXAM DATE/TIME: 01/17/2017 17:19 [facility] COMPARISON: No previous studies available for comparison. INDICATIONS : Right arm swelling. MEDICAL HISTORY : . Gastric ulcer. Anxiety. Anemia. Colon cancer with mets to liver. SURGICAL HISTORY : Right chest port placement. Dilation and curettage. ENCOUNTER: Initial ACUITY: 1 day PAIN SCORE: 3/10 LOCATION: Right arm. FINDINGS: Examination is positive for occlusive thrombus in proximal brachial vein. No superficial thrombus zi ntified. No evidence for deep venous thrombosis in the internal jugular, subclavian, axillary, basili c or cephalic veins. CONCLUSION: 1. Positive for occlusive thrombus in the right brachial vein. No other deep venous thrombosis identi fied. Juan Rivera MD on January 17, 2017 at 17:53 Board Certified Radiologist. This report was verified electronically.
[2017-01-17 18:07] LABS: ALKALINE PHOSPHATASE 202 U/L (45-117); ALT (GPT) 11 U/L (10-53); ANION GAP 9 MEQ/L (5-15); AST (GOT) 27 U/L (15-37); BICARBONATE 22.7 MEQ/L (21.0-32.0); CHLORIDE 101 MEQ/L (98-107); GLOMERULAR FILTRATION RATE 176 ML/MIN (>89); POTASSIUM 3.4 MEQ/L (3.5-5.1); SODIUM (NA) 133 MEQ/L (136-145); TOTAL BILIRUBIN ADULT 0.4 MG/DL (0.2-1.0)
[2017-01-17 18:12] LABS: BLOOD UREA NITROGEN 9 MG/DL (7-18)
[2017-01-17] MEDS: LOPERAMIDE HCL 2 MG CAP PO PRN (19:01)
[2017-01-17] MEDS ORDERED: ALPRAZolam 0.25 MG TAB PO PRN (20:45)
[2017-01-17] MEDS: ENOXAPARIN SODIUM 60 MG/0.6 ML SYRINGE SQ SCH (21:49)
[2017-01-18] VITALS (8 sets, daily range): BP systolic 102–169; BP diastolic 62–82; PULSE 80–104; RESP 16–21; TEMP 96.5–98.4; O2SAT 97–99
[2017-01-18] MEDS: SODIUM CHLOR 0.9% 1000 ML INJ 1,000 ML IV SCH ×2 (04:55→21:00)
[2017-01-18 07:17] LABS: AUTOMATED NEUTROPHIL # 1.9 TH/MM3 (1.8-7.7); BASOPHIL % 0.3 % (0.0-2.0); EOSINOPHIL % 0.4 % (0.0-4.0); HEMATOCRIT 22.8 % (35.0-46.0); HEMO FLAGS DIFF FINAL; LYMPH % 29.2 % (9.0-44.0); LYMPHOCYTE # 0.9 TH/MM3 (1.0-4.8); MEAN CELL VOLUME 94.2 FL (80.0-100.0); MEAN CORPUSCULAR HEMOGLOBIN 30.9 PG (27.0-34.0); MEAN CORPUSCULAR HGB CONC 32.8 % (32.0-36.0); MONO % 6.9 % (0.0-8.0); NEUT % 63.2 % (16.0-70.0); PLATELET COUNT 115 TH/MM3 (150-450); RED BLOOD COUNT 2.42 MIL/MM3 (4.00-5.30); RED CELL DISTRIBUTION WIDTH 15.8 % (11.6-17.2)
[2017-01-18] MEDS: ENOXAPARIN SODIUM 60 MG/0.6 ML SYRINGE SQ SCH ×2 (08:58→20:59)
[2017-01-18] MEDS: LACTOBACILLUS ACIDOPHILUS TAB PO SCH ×2 (08:58→20:59)
[2017-01-18] MEDS: PANTOPRAZOLE SOD 40 MG DELAYED RELEASE TAB PO SCH (08:58)
[2017-01-18] MEDS: NYSTATIN SUSP 500,000 U/5 ML CUP SWISH-SWAL SCH ×4 (08:58→20:59)
[2017-01-18] MEDS: CEFEPIME INJ 2,000 MG in SODIUM CHLORIDE 0.9% INJ 100 ML IV SCH ×3 (08:59→23:26)
[2017-01-18] MEDS ORDERED: SODIUM CHLOR 0.9% 250 ML INJ 250 ML IV ONE (09:45)
[2017-01-18] MEDS ORDERED: ACETAMINOPHEN 325 MG TAB PO ONE (10:00)
[2017-01-18] MEDS ORDERED: diphenhydrAMINE HCL 25 MG CAP PO ONE (10:00)
--- NOTE | 2017-01-18 10:10 | HHI.PR ---
Subjective Remarks Follow up for metastatic rectal cancer, fever. Patient is currently doing well. Denies any chest pain, shortness of breath, fever, chills. Objective Vitals Vital Signs Date Time Temp Pulse Resp B/P Pulse Ox O2 Delivery O2 Flow Rate FiO2 01/18/17 08:54 97.3 86 21 153/78 98 01/18/17 04:45 96.5 84 18 132/81 98 01/18/17 00:00 97.6 86 16 121/66 99 01/17/17 20:30 99.7 92 18 131/66 98 01/17/17 16:00 101.5 97 20 153/73 99 01/17/17 12:00 98.4 93 20 127/80 98 01/17/17 11:36 87 I/O 01/17/17 01/17/17 01/17/17 01/18/17 01/18/17 01/18/17 07:00 15:00 23:00 07:00 15:00 23:00 Intake Total 360 ml 240 ml 1688 ml 584 ml Balance 360 ml 240 ml 1688 ml 584 ml Intake Oral 360 ml 240 ml 480 ml IV Total 1208 ml 584 ml # Voids 1 2 2 2 # Bowel Movements 4 2 Result Diagram: 01/18/17 0618 01/17/17 1718 Imaging Last Impressions Upper Extremity Ultrasound 01/17/17 0000 Signed Impressions: Service Date/Time: Tuesday, January 17, 2017 17:19 - CONCLUSION: 1. Positive for occlusive thrombus in the right brachial vein. No other deep venous thrombosis identified. Juan Rivera MD Chest X-Ray 01/16/17 1511 Signed Impressions: Service Date/Time: Monday, January 16, 2017 15:28 - CONCLUSION: 1. No acute cardiopulmonary disease. Dio Perez MD Abdomen/Pelvis CT 01/16/17 1511 Signed Impressions: Service Date/Time: Monday, January 16, 2017 15:34 - CONCLUSION: Large confluent in the liver. This probably represents metastatic disease. Lack of intravenous contrast excludes portal vein thrombosis which have the similar appearance. Prasanth Vilchis MD FACR Objective Remarks GENERAL: Alert, NAD. SKIN: Warm and dry. HEAD: Normocephalic. EYES: No scleral icterus. No injection or drainage. NECK: Supple, trachea midline. No JVD or lymphadenopathy. CARDIOVASCULAR: Regular rate and rhythm without murmurs, gallops, or rubs. RESPIRATORY: Breath sounds equal bilaterally. No accessory muscle use. GASTROINTESTINAL: Abdomen soft, non-tender, nondistended. MUSCULOSKELETAL: No cyanosis, or edema. BACK: Nontender without obvious deformity. No CVA tenderness. Procedures None. A/P Problem List: (1) Fever, unknown origin ICD Code: R50.9 Status: Acute (2) Lactic acid acidosis ICD Code: E87.2 Status: Acute (3) Colon cancer metastasized to liver ICD Code: C18.9 Status: Acute Assessment and Plan 76 y/o female with a history of anemia, anxiety, colon ca with metastasized to liver. Patient does under go chemo with Dr. Medina. Patient usually gets booster for her immune system on Tuesdays after her chemotherapy on the week after and she was actually supposed to get this today. She was noted to have a fever of 102 in the office today. Fever, unknown origin with lactic acidosis, no leukocytosis, UA negative, immunocompromised on chemotherapy Lactic acid 2.4, Tmax 102 prior to coming to hospital - Tylenol for fever - Cont Cefepime IV Q8hrs. Lactic acid improved. Microbiological work up including blood cultures negative so far. - Fever possibly due to upper ext DVT. Currently afebrile. - Continue gentle hydration. Ensure is added to diet. Rectal cancer mets to liver. - Oncology following. Upper extremity DVT - Currently on Lovenox 50mg Q12hrs. Oncology will consider Pradaxa for 3 months. GERD - continue Protonix. Full code. Lovenox 50mg Q12hrs. Johnnie Mcgarry DO Jan 18, 2017 10:10
[2017-01-18] MEDS: DRONABINOL 5 MG CAP PO SCH ×2 (11:43→16:31)
--- NOTE | 2017-01-18 12:37 | PD.ONC.PN ---
Subjective Subjective Remarks MAXIMUM TEMPERATURE 99.7 overnight Denies acute complaints Tired of laying in bed Diarrhea improving Objective Data Date Time Temp Pulse Resp B/P Pulse Ox O2 Delivery O2 Flow Rate FiO2 01/18/17 08:54 97.3 86 21 153/78 98 01/18/17 04:45 96.5 84 18 132/81 98 01/18/17 00:00 97.6 86 16 121/66 99 01/17/17 20:30 99.7 92 18 131/66 98 01/17/17 16:00 101.5 97 20 153/73 99 01/18/17 01/18/17 01/18/17 07:00 15:00 23:00 Intake Total 584 ml Balance 584 ml Result Diagram: 01/18/1761701/17/17 1718 Laboratory Results Laboratory Tests Test 01/17/17 01/17/17 01/18/17 13:00 17:18 06:18 Stool C. difficile Toxin (PCR) NEGATIVE Stl C. difficile Toxin PRESUMPTIVE Epiderm 027 NEGATIVE White Blood Count 3.5 TH/MM3 3.0 TH/MM3 Red Blood Count 2.69 MIL/MM3 2.42 MIL/MM3 Hemoglobin 8.6 GM/DL 7.5 GM/DL Hematocrit 25.0 % 22.8 % Mean Corpuscular Volume 92.8 FL 94.2 FL Mean Corpuscular Hemoglobin 32.0 PG 30.9 PG Mean Corpuscular Hemoglobin 34.5 % 32.8 % Concent Red Cell Distribution Width 15.5 % 15.8 % Platelet Count 156 TH/MM3 115 TH/MM3 Mean Platelet Volume 6.9 FL 7.1 FL Neutrophils (%) (Auto) 69.7 % 63.2 % Lymphocytes (%) (Auto) 26.5 % 29.2 % Monocytes (%) (Auto) 3.5 % 6.9 % Eosinophils (%) (Auto) 0.1 % 0.4 % Basophils (%) (Auto) 0.2 % 0.3 % Neutrophils # (Auto) 2.4 TH/MM3 1.9 TH/MM3 Lymphocytes # (Auto) 0.9 TH/MM3 0.9 TH/MM3 Monocytes # (Auto) 0.1 TH/MM3 0.2 TH/MM3 Eosinophils # (Auto) 0.0 TH/MM3 0.0 TH/MM3 Basophils # (Auto) 0.0 TH/MM3 0.0 TH/MM3 CBC Comment DIFF FINAL DIFF FINAL Differential Comment Sodium Level 133 MEQ/L Potassium Level 3.4 MEQ/L Chloride Level 101 MEQ/L Carbon Dioxide Level 22.7 MEQ/L Anion Gap 9 MEQ/L Blood Urea Nitrogen 9 MG/DL Creatinine 0.36 MG/DL Estimat Glomerular Filtration 176 ML/MIN Rate Random Glucose 77 MG/DL Calcium Level 7.8 MG/DL Total Bilirubin 0.4 MG/DL Aspartate Amino Transf 27 U/L (AST/SGOT) Alanine Aminotransferase 11 U/L (ALT/SGPT) Alkaline Phosphatase 202 U/L Total Protein 5.0 GM/DL Albumin 1.6 GM/DL Culture Results Microbiology Date/Time Procedure Status Source Growth 01/16/17 01:52 Aerobic Blood Culture - Preliminary Resulted Blood Peripheral NO GROWTH IN 2 DAYS 01/16/17 01:52 Anaerobic Blood Culture - Preliminary Resulted Blood Peripheral NO GROWTH IN 2 DAYS 01/16/17 15:30 Aerobic Blood Culture - Preliminary Resulted Blood Peripheral NO GROWTH IN 2 DAYS 01/16/17 15:30 Anaerobic Blood Culture - Preliminary Resulted Blood Peripheral NO GROWTH IN 2 DAYS 01/17/17 13:00 Rotavirus Antigen - Final Complete Stool Stool NEGATIVE - ROTAVIRUS ANTIGEN IS ABSEN... 01/17/17 13:00 Received Stool Stool Pending 01/17/17 13:00 Cryptosporidium Exam Received Stool Stool Pending 01/17/17 13:00 Giardia Antigen (PHYLLIS) Received Stool Stool Pending Administered Medications Medications (Trade) Dose Ordered Sig/Madison Route PRN Reason Start Time Stop Time Status Last Admin Dose Admin Acetaminophen (Tylenol) 650 mg Q4H PRN PO TEMP > 100.4 01/16/17 18:00 01/17/17 00:17 Nystatin 5 ml 5 ml QID SWISH-SWAL 01/16/17 18:00 01/18/17 08:58 Cefepime HCl 2000 mg/Sodium Chloride 100 ml @ 200 mls/hr Q8H IV 01/17/17 00:00 01/18/17 08:59 Sodium Chloride (NS 1000 ml Inj) 1,000 ml @ 84 mls/hr [id number] IV 01/16/17 18:00 01/18/17 04:55 Lactobacillus Acidophilus (Lactinex) 1 tab Q12HR PO 01/16/17 21:00 01/18/17 08:58 Dronabinol (Marinol) 5 mg BID@11,16 PO 01/17/17 11:00 01/18/17 11:43 Pantoprazole Sodium (Protonix) 40 mg DAILY PO 01/17/17 09:00 01/18/17 08:58 Heparin Sodium (Porcine) (Heparin Central Flush) 500 units UNSCH IV FLUSH 01/17/17 06:30 01/17/17 09:54 Sodium Chloride (NS Flush) 5 ml UNSCH PRN IV FLUSH FLUSH AFTER USING IV ACCESS 01/17/17 06:30 01/17/17 09:52 Loperamide HCl (Imodium) 2 mg UNSCH PRN PO DIARRHEA 01/17/17 15:30 01/17/17 19:01 Enoxaparin Sodium (Lovenox Inj) 50 mg Q12HR SQ 01/17/17 21:00 01/18/17 08:58 Objective Remarks GENERAL: Pleasant older female lying in bed in no distress SKIN: Warm and dry. HEAD: Normocephalic. EYES: No injection or drainage. NECK: Supple, trachea midline. CARDIOVASCULAR: + S1/S2. RESPIRATORY: Clear anteriorly. Breathing unlabored. GASTROINTESTINAL: Abdomen soft, non-tender, nondistended. EXTREMITIES: No cyanosis, or edema. NEUROLOGICAL: No obvious focal deficit. Awake, alert, and oriented x3. Assessment/Plan Problem List: (1) Colon cancer metastasized to liver Status: Acute Plan: -- Most recently had cycle #10 in the outpatient clinic on 01/10 with Avastin and FOLFOX chemotherapy -- She was noted to have low-grade fever when she returned for Neupogen injection -- No obvious progression of disease based on scans from emergency room. Hx: Patient was diagnosed with metastatic rectal cancer with multiple metastatic lesions in the liver. She also has nodule in the right lung with mediastinal adenopathy consistent with metastatic disease. 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 Most recent imaging has showed a good response to therapy. CEA has decreased from 1700-750. (2) Fever, unknown origin Status: Acute Plan: -- On cefepime --Monitor CBC -- Blood cultures show no growth Assessment 76-year-old female with history of metastatic rectal cancer admitted for fevers Plan 1. Will transfuse 1 unit of packed red blood cells today 2. Monitor CBC Attending Statement The exam, history, and the medical decision-making described in the above note were completed with the assistance of the mid-level provider. I reviewed and agree with the findings presented. I attest that I had a [id number] encounter with the patient on the same day, and personally performed and documented my assessment and findings in the medical record. Feeling better. No abdominal pain. Diarrhea improving. Had fever last night. Culture negative , continue abx. Hgb trended lower, will transfuse PRBC. RUE DVT on Lovenox, can consider switching to pradaxa for 3 months. Mandy Hernandez Jan 18, 2017 12:37 Ulysses Medina MD Jan 18, 2017 12:42
[2017-01-18] MEDS: LOPERAMIDE HCL 2 MG CAP PO PRN (23:28)
[2017-01-19] MEDS: ALPRAZolam 0.25 MG TAB PO ONE ×2 (03:15→04:18)
[2017-01-19] MEDS: SODIUM CHLOR 0.9% 1000 ML INJ 1,000 ML IV SCH ×2 (04:25→17:30)
[2017-01-19 05:30] VITALS: BP 156/82; PULSE 76; RESP 18; TEMP 98.5; O2SAT 99
[2017-01-19 08:00] VITALS: BP 157/85; PULSE 80; RESP 22; TEMP 97.3; O2SAT 99
[2017-01-19] MEDS: NYSTATIN SUSP 500,000 U/5 ML CUP SWISH-SWAL SCH ×4 (08:20→22:42)
[2017-01-19] MEDS: PANTOPRAZOLE SOD 40 MG DELAYED RELEASE TAB PO SCH (08:21)
[2017-01-19] MEDS: CEFEPIME INJ 2,000 MG in SODIUM CHLORIDE 0.9% INJ 100 ML IV SCH (08:21)
[2017-01-19] MEDS: LACTOBACILLUS ACIDOPHILUS TAB PO SCH ×2 (08:21→22:43)
[2017-01-19] MEDS: ENOXAPARIN SODIUM 60 MG/0.6 ML SYRINGE SQ SCH ×2 (08:22→22:43)
--- NOTE | 2017-01-19 09:53 | HHI.PR ---
Subjective Remarks Follow up for metastatic rectal cancer, fever. Patient is doing well. No fever, chills. Denies any chest pain, shortness of breath. Objective Vitals Vital Signs Date Time Temp Pulse Resp B/P Pulse Ox O2 Delivery O2 Flow Rate FiO2 01/19/17 05:30 98.5 76 18 156/82 99 01/18/17 23:10 96.7 82 18 142/82 97 01/18/17 20:57 98.0 80 16 102/62 98 01/18/17 20:00 97.7 104 16 120/66 99 01/18/17 16:33 98.4 94 21 169/74 98 01/18/17 12:36 97.0 92 21 162/75 99 I/O 01/18/17 01/18/17 01/18/17 01/19/17 01/19/17 01/19/17 06:59 14:59 22:59 06:59 14:59 22:59 Intake Total 584 ml 480 ml 200 ml 240 ml Balance 584 ml 480 ml 200 ml 240 ml Intake Oral 480 ml 200 ml 240 ml IV Total 584 ml # Voids 2 2 1 1 # Bowel Movements 1 0 Result Diagram: 01/18/17 0618 01/17/17 1718 Imaging Last Impressions Upper Extremity Ultrasound 01/17/17 0000 Signed Impressions: Service Date/Time: Tuesday, January 17, 2017 17:19 - CONCLUSION: 1. Positive for occlusive thrombus in the right brachial vein. No other deep venous thrombosis identified. Juan Rivera MD Chest X-Ray 01/16/17 1511 Signed Impressions: Service Date/Time: Monday, January 16, 2017 15:28 - CONCLUSION: 1. No acute cardiopulmonary disease. Dio Perez MD Abdomen/Pelvis CT 01/16/17 1511 Signed Impressions: Service Date/Time: Monday, January 16, 2017 15:34 - CONCLUSION: Large confluent in the liver. This probably represents metastatic disease. Lack of intravenous contrast excludes portal vein thrombosis which have the similar appearance. Prasanth Vilchis MD FACR Objective Remarks GENERAL: Alert, NAD. SKIN: Warm and dry. HEAD: Normocephalic. EYES: No scleral icterus. No injection or drainage. NECK: Supple, trachea midline. No JVD or lymphadenopathy. CARDIOVASCULAR: Regular rate and rhythm without murmurs, gallops, or rubs. RESPIRATORY: Breath sounds equal bilaterally. No accessory muscle use. GASTROINTESTINAL: Abdomen soft, non-tender, nondistended. MUSCULOSKELETAL: No cyanosis, or edema. BACK: Nontender without obvious deformity. No CVA tenderness. Procedures None. A/P Problem List: (1) Fever, unknown origin ICD Code: R50.9 Status: Acute (2) Lactic acid acidosis ICD Code: E87.2 Status: Acute (3) Colon cancer metastasized to liver ICD Code: C18.9 Status: Acute Assessment and Plan 76 y/o female with a history of anemia, anxiety, colon ca with metastasized to liver. Patient does under go chemo with Dr. Medina. Patient usually gets booster for her immune system on Tuesdays after her chemotherapy on the week after and she was actually supposed to get this today. She was noted to have a fever of 102 in the office today. Fever, unknown origin with lactic acidosis, no leukocytosis, UA negative, immunocompromised on chemotherapy Lactic acid 2.4, Tmax 102 prior to coming to hospital - Tylenol for fever - Currently on Cefepime IV Q8hrs. Lactic acid improved. Microbiological work up including blood cultures negative so far. - Will discontinue Cefepime and observe without abx today. If afebrile, we will discharge patient tomorrow with Oral anti-coagulant. - Fever possibly due to upper ext DVT. Currently afebrile. - Continue gentle hydration. Ensure is added to diet. Rectal cancer mets to liver. - Oncology following. Upper extremity DVT - Currently on Lovenox 50mg Q12hrs. Oncology will consider Pradaxa for 3 months. GERD - continue Protonix. Full code. Lovenox 50mg Q12hrs. Johnnie Mcgarry DO Jan 19, 2017 9:53 am
[2017-01-19 12:00] VITALS: BP_SYST 135; BP_SYST 174; BP_DIAS 105; BP_DIAS 85; PULSE 79; PULSE 82; RESP 18; TEMP 97; TEMP 97.6; O2SAT 98; O2SAT 99
[2017-01-19] MEDS: DRONABINOL 5 MG CAP PO SCH ×2 (12:42→17:31)
[2017-01-19 13:31] LABS: AUTOMATED NEUTROPHIL # 2.9 TH/MM3 (1.8-7.7); BASOPHIL % 0.2 % (0.0-2.0); EOSINOPHIL % 0.5 % (0.0-4.0); HEMATOCRIT 33.4 % (35.0-46.0); HEMO FLAGS DIFF FINAL; LYMPH % 34.9 % (9.0-44.0); LYMPHOCYTE # 1.8 TH/MM3 (1.0-4.8); MEAN CELL VOLUME 90.6 FL (80.0-100.0); MEAN CORPUSCULAR HEMOGLOBIN 29.6 PG (27.0-34.0); MEAN CORPUSCULAR HGB CONC 32.7 % (32.0-36.0); MONO % 9.3 % (0.0-8.0); NEUT % 55.1 % (16.0-70.0); PLATELET COUNT 154 TH/MM3 (150-450); RED BLOOD COUNT 3.69 MIL/MM3 (4.00-5.30); RED CELL DISTRIBUTION WIDTH 18.1 % (11.6-17.2); WHITE BLOOD COUNT 5.3 TH/MM3 (4.0-11.0)
[2017-01-19 16:00] VITALS: BP 135/85; PULSE 79; RESP 18; TEMP 97; O2SAT 98
--- NOTE | 2017-01-19 17:01 | PD.ONC.PN ---
Subjective Subjective Remarks Afebrile overnight Patient states she feels much better after getting blood transfusion yesterday Asking about getting discharged tomorrow as she has a flight to [place] on Monday Objective Data Date Time Temp Pulse Resp B/P Pulse Ox O2 Delivery O2 Flow Rate FiO2 01/19/17 08:00 97.3 80 22 157/85 99 01/19/17 05:30 98.5 76 18 156/82 99 01/18/17 23:10 96.7 82 18 142/82 97 01/18/17 20:57 98.0 80 16 102/62 98 01/18/17 20:00 97.7 104 16 120/66 99 01/19/17 01/19/17 01/19/17 07:00 15:00 23:00 Intake Total 240 ml Balance 240 ml Result Diagram: 01/19/17 1233 01/17/17 1718 Laboratory Results Laboratory Tests Test 01/19/17 12:33 White Blood Count 5.3 TH/MM3 Red Blood Count 3.69 MIL/MM3 Hemoglobin 10.9 GM/DL Hematocrit 33.4 % Mean Corpuscular Volume 90.6 FL Mean Corpuscular Hemoglobin 29.6 PG Mean Corpuscular Hemoglobin 32.7 % Concent Red Cell Distribution Width 18.1 % Platelet Count 154 TH/MM3 Mean Platelet Volume 7.6 FL Neutrophils (%) (Auto) 55.1 % Lymphocytes (%) (Auto) 34.9 % Monocytes (%) (Auto) 9.3 % Eosinophils (%) (Auto) 0.5 % Basophils (%) (Auto) 0.2 % Neutrophils # (Auto) 2.9 TH/MM3 Lymphocytes # (Auto) 1.8 TH/MM3 Monocytes # (Auto) 0.5 TH/MM3 Eosinophils # (Auto) 0.0 TH/MM3 Basophils # (Auto) 0.0 TH/MM3 CBC Comment DIFF FINAL Differential Comment Culture Results Microbiology Date/Time Procedure Status Source Growth 01/17/17 13:00 Rotavirus Antigen - Final Complete Stool Stool NEGATIVE - ROTAVIRUS ANTIGEN IS ABSEN... 01/17/17 13:00 - Final Complete Stool Stool NO ENTERIC PATHOGENS DETECTED BY PCR... 01/17/17 13:00 Cryptosporidium Exam - Final Complete Stool Stool NEGATIVE - NO CRYPTOSPORIDIUM ANTIGEN... 01/17/17 13:00 Giardia Antigen (PHYLLIS) - Final Complete Stool Stool NEGATIVE - NO GIARDIA ANTIGEN DETECTE... Administered Medications Medications (Trade) Dose Ordered Sig/Madison Route PRN Reason Start Time Stop Time Status Last Admin Dose Admin Acetaminophen (Tylenol) 650 mg Q4H PRN PO TEMP > 100.4 01/16/17 18:00 01/17/17 00:17 Nystatin 5 ml 5 ml QID SWISH-SWAL 01/16/17 18:00 01/19/17 12:42 Sodium Chloride (NS 1000 ml Inj) 1,000 ml @ 84 mls/hr [id number] IV 01/16/17 18:00 01/19/17 04:25 Lactobacillus Acidophilus (Lactinex) 1 tab Q12HR PO 01/16/17 21:00 01/18/17 08:58 Dronabinol (Marinol) 5 mg BID@11,16 PO 01/17/17 11:00 01/19/17 12:42 Pantoprazole Sodium (Protonix) 40 mg DAILY PO 01/17/17 09:00 01/19/17 08:21 Heparin Sodium (Porcine) (Heparin Central Flush) 500 units UNSCH IV FLUSH 01/17/17 06:30 01/17/17 09:54 Sodium Chloride (NS Flush) 5 ml UNSCH PRN IV FLUSH FLUSH AFTER USING IV ACCESS 01/17/17 06:30 01/17/17 09:52 Clonidine (Catapres) 0.1 mg Q6H PRN PO SBP>160, DBP>90 01/17/17 14:30 01/19/17 14:26 Loperamide HCl (Imodium) 2 mg UNSCH PRN PO DIARRHEA 01/17/17 15:30 01/18/17 23:28 Enoxaparin Sodium (Lovenox Inj) 50 mg Q12HR SQ 01/17/17 21:00 01/19/17 08:22 Objective Remarks GENERAL: Pleasant older female lying in bed in no distress SKIN: Warm and dry. HEAD: Normocephalic. EYES: No injection or drainage. NECK: Supple, trachea midline. CARDIOVASCULAR: + S1/S2. RESPIRATORY: Clear anteriorly. Breathing unlabored. GASTROINTESTINAL: Abdomen soft, non-tender, nondistended. EXTREMITIES: No cyanosis, or edema. NEUROLOGICAL: No obvious focal deficit. Awake, alert, and oriented x3. Assessment/Plan Problem List: (1) Colon cancer metastasized to liver Status: Acute Plan: -- Most recently had cycle #10 in the outpatient clinic on 01/10 with Avastin and FOLFOX chemotherapy -- She was noted to have low-grade fever when she returned for Neupogen injection -- No obvious progression of disease based on scans from emergency room. Hx: Patient was diagnosed with metastatic rectal cancer with multiple metastatic lesions in the liver. She also has nodule in the right lung with mediastinal adenopathy consistent with metastatic disease. 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 Most recent imaging has showed a good response to therapy. CEA has decreased from 1700-750. (2) Fever, unknown origin Status: Acute Plan: -- On cefepime --Monitor CBC -- Blood cultures show no growth Assessment 76-year-old female with history of metastatic rectal cancer admitted for fevers Plan 1. We'll transition patient from Lovenox to Pradaxa tomorrow morning for occlusive thrombus in right upper extremity 2. Recommend anticoagulation for 3 months 3. Monitor CBC Attending Statement The exam, history, and the medical decision-making described in the above note were completed with the assistance of the mid-level provider. I reviewed and agree with the findings presented. I attest that I had a [id number] encounter with the patient on the same day, and personally performed and documented my assessment and findings in the medical record. Feeling stronger after transfusion. Hgb trended up. WBC trended up. Consider switching to Pradaxa for DVT. Can be d/c if stable tomorrow. Mandy Hernandez Jan 19, 2017 17:00 Ulysses Medina MD Jan 19, 2017 17:12
[2017-01-19 21:15] VITALS: BP 159/72; PULSE 83; RESP 18; TEMP 98; O2SAT 99
[2017-01-20 01:00] VITALS: BP 146/69; PULSE 81; RESP 18; TEMP 98.7; O2SAT 97
[2017-01-20] MEDS: SODIUM CHLOR 0.9% 1000 ML INJ 1,000 ML IV SCH (05:25)
[2017-01-20 05:55] LABS: BASOPHIL % 0.4 % (0.0-2.0); EOSINOPHIL % 0.5 % (0.0-4.0); HEMATOCRIT 29.3 % (35.0-46.0); HEMO FLAGS DIFF FINAL; LYMPH % 40.6 % (9.0-44.0); LYMPHOCYTE # 1.8 TH/MM3 (1.0-4.8); MEAN CELL VOLUME 89.2 FL (80.0-100.0); MEAN CORPUSCULAR HEMOGLOBIN 30.1 PG (27.0-34.0); MEAN CORPUSCULAR HGB CONC 33.8 % (32.0-36.0); MONO % 13.3 % (0.0-8.0); NEUT % 45.2 % (16.0-70.0); PLATELET COUNT 131 TH/MM3 (150-450); RED BLOOD COUNT 3.29 MIL/MM3 (4.00-5.30); RED CELL DISTRIBUTION WIDTH 17.7 % (11.6-17.2); WHITE BLOOD COUNT 4.4 TH/MM3 (4.0-11.0)
[2017-01-20 06:30] VITALS: BP 168/83; PULSE 82; RESP 18; TEMP 97.5; O2SAT 98
[2017-01-20 08:00] VITALS: BP 151/88; PULSE 82; RESP 18; TEMP 97.8; O2SAT 99
[2017-01-20] MEDS ORDERED: DABIGATRAN ETEXILATE 150 MG CAP PO SCH (09:00)
[2017-01-20] MEDS: NYSTATIN SUSP 500,000 U/5 ML CUP SWISH-SWAL SCH ×2 (09:37→13:00)
[2017-01-20] MEDS: LACTOBACILLUS ACIDOPHILUS TAB PO SCH (09:37)
[2017-01-20] MEDS: PANTOPRAZOLE SOD 40 MG DELAYED RELEASE TAB PO SCH (09:37)
[2017-01-20] MEDS ORDERED: PRAD150C PO (10:10)
--- NOTE | 2017-01-20 10:12 | HHI.DS ---
Discharge Summary Admission Date Jan 17, 2017 at 2:27 pm Discharge Date: Jan 20, 2017 Admitting Diagnosis fever of unknown source, lactic acidosis, chemo patient (1) Fever, unknown origin ICD Code: R50.9 (2) Lactic acid acidosis ICD Code: E87.2 (3) Colon cancer metastasized to liver ICD Code: C18.9 Procedures None. Brief History - From Admission Written by SERGE Hernandez acting as scribe for [Tea] on 01/16/17 at 17: 34. 76 y/o female with a history of anemia, anxiety, colorectal ca with metastasized to liver. Patient does under go chemo with Dr. Medina and last treatment was on . Patient usually gets booster for her immune system on Tuesdays after her chemotherapy on the week after and she was actually supposed to get this today. She was noted to have a fever of [address] in the office today. Dr. Osman recommended her come to the hospital for evaluation. Patient states prior to today she has just been feeling fatigued, last fever was in September that she had. She complains of sores inside of her mouth that started when she started chemo. She denies any chest pain, sob, or cough. She does have some abdominal pains that go across the lower abdomen with associated constipation. The pain does go away when she has a bowel movement. She takes a stool softener as needed for constipation. Denies any recent antibiotic use. Her appetite is better than what it has been, she takes in smaller meals throughout the day with meal shakes. PCP: Dr Fisher Oncologist: Dr. Medina CBC/BMP: 01/20/17 0516 01/17/17 7138 Significant Findings Laboratory Tests Test 01/17/17 01/18/17 01/19/17 01/20/17 17:18 06:18 12:33 05:16 White Blood Count 3.5 TH/MM3 3.0 TH/MM3 (4.0-11.0) (4.0-11.0) Red Blood Count 2.69 MIL/MM3 2.42 MIL/MM3 3.69 MIL/MM3 3.29 MIL/MM3 (4.00-5.30) (4.00-5.30) (4.00-5.30) (4.00-5.30) Hemoglobin 8.6 GM/DL 7.5 GM/DL 10.9 GM/DL 9.9 GM/DL (11.6-15.3) (11.6-15.3) (11.6-15.3) (11.6-15.3) Hematocrit 25.0 % 22.8 % 33.4 % 29.3 % (35.0-46.0) (35.0-46.0) (35.0-46.0) (35.0-46.0) Mean Platelet Volume 6.9 FL (7.0-11.0) Lymphocytes # (Auto) 0.9 TH/MM3 0.9 TH/MM3 (1.0-4.8) (1.0-4.8) Sodium Level 133 MEQ/L (136-145) Potassium Level 3.4 MEQ/L (3.5-5.1) Creatinine 0.36 MG/DL (0.50-1.00) Calcium Level 7.8 MG/DL (8.5-10.1) Alkaline Phosphatase 202 U/L (45-117) Total Protein 5.0 GM/DL (6.4-8.2) Albumin 1.6 GM/DL (3.4-5.0) Platelet Count 115 TH/MM3 131 TH/MM3 (150-450) (150-450) Red Cell Distribution Width 18.1 % 17.7 % (11.6-17.2) (11.6-17.2) Monocytes (%) (Auto) 9.3 % (0.0-8.0) 13.3 % (0.0-8.0) Imaging Last Impressions Upper Extremity Ultrasound 01/17/17 0000 Signed Impressions: Service Date/Time: Tuesday, January 17, 2017 17:19 - CONCLUSION: 1. Positive for occlusive thrombus in the right brachial vein. No other deep venous thrombosis identified. Juan Rivera MD Chest X-Ray 01/16/17 1511 Signed Impressions: Service Date/Time: Monday, January 16, 2017 15:28 - CONCLUSION: 1. No acute cardiopulmonary disease. Dio Perez MD Abdomen/Pelvis CT 01/16/17 1511 Signed Impressions: Service Date/Time: Monday, January 16, 2017 15:34 - CONCLUSION: Large confluent in the liver. This probably represents metastatic disease. Lack of intravenous contrast excludes portal vein thrombosis which have the similar appearance. Prasanth Vilchis MD FACR PE at Discharge GENERAL: Alert, NAD. SKIN: Warm and dry. HEAD: Normocephalic. EYES: No scleral icterus. No injection or drainage. NECK: Supple, trachea midline. No JVD or lymphadenopathy. CARDIOVASCULAR: Regular rate and rhythm without murmurs, gallops, or rubs. RESPIRATORY: Breath sounds equal bilaterally. No accessory muscle use. GASTROINTESTINAL: Abdomen soft, non-tender, nondistended. MUSCULOSKELETAL: No cyanosis, or edema. BACK: Nontender without obvious deformity. No CVA tenderness. Pt update on day of discharge Ms. Sommers is doing well. No acute concerns. Denies any chest pain, shortness of breath, fever or chills. Hospital Course 76 y/o female with a history of anemia, anxiety, colon ca with metastasized to liver. Patient does under go chemo with Dr. Medina. Patient usually gets booster for her immune system on Tuesdays after her chemotherapy on the week after and she was actually supposed to get this today. She was noted to have a fever of 102 in the office today. Fever, unknown origin with lactic acidosis, no leukocytosis, UA negative, immunocompromised on chemotherapy Lactic acid 2.4, Tmax 102 prior to coming to hospital - Tylenol for fever - discontinued Cefepime yesterday. Patient remains afebrile. - Fever possibly due to upper ext DVT. Currently afebrile. - Continue gentle hydration. Ensure is added to diet. Rectal cancer mets to liver. - Oncology following. Upper extremity DVT - Received Lovenox 50mg Q12hrs. Hematology/Oncology switched to Pradaxa 150mg BID. GERD - continue Protonix. Pt Condition on Discharge: Good Discharge Disposition: Discharge Home Discharge Time: > 30 minutes Discharge Instructions DIET: Follow Instructions for: As Tolerated, No Restrictions Activities you can perform: Regular-No Restrictions Follow up Referrals: PCP Follow-up - 1 Week New Medications: Dabigatran (Pradaxa) 150 Mg Cap 150 MG PO BID Blood Clot Prevention #60 CAP Continued Medications: Alprazolam (Alprazolam) 0.25 Mg Tab 0.25 MG PO TID PRN ANXIETY Ref 0 TAB Dicyclomine (Dicyclomine) 20 Mg Tab 20 MG PO Q12HR Bowel Management #120 Ref 0 TAB Dronabinol (Marinol) 5 Mg Cap 5 MG PO BID Ref 0 CAP Pantoprazole (Pantoprazole) 40 Mg Tab 40 MG PO DAILY Reflux #30 Ref 0 TAB Potassium Chloride ER (Potassium Chloride ER) 10 Meq Tab 10 MEQ PO DAILY Electrolyte Replacement #30 Ref 0 TAB Discontinued Medications: Ciprofloxacin (Cipro) 500 Mg Tab 500 MG PO BID Infection Days 7 Ref 0 TAB Johnnie Mcgarry DO Jan 20, 2017 10:12 am
[2017-01-20 12:00] VITALS: BP 143/83; PULSE 90; RESP 18; TEMP 98.1; O2SAT 98
--- NOTE | 2017-01-20 12:57 | PD.ONC.PN ---
Subjective Subjective Remarks Afebrile overnight. Patient resting in bed in [facility]. Eager to go home. Says she is going to [facility] tomorrow. Objective Data Date Time Temp Pulse Resp B/P Pulse Ox O2 Delivery O2 Flow Rate FiO2 01/20/17 08:00 97.8 82 18 151/88 99 01/20/17 06:30 97.5 82 18 168/83 98 01/20/17 01:00 98.7 81 18 146/69 97 01/19/17 21:15 98.0 83 18 159/72 99 01/19/17 16:00 97.0 79 18 135/85 98 01/20/17 01/20/17 01/20/17 07:00 15:00 23:00 Intake Total 120 ml 608 ml Balance 120 ml 608 ml Result Diagram: 01/20/17 0516 01/17/17 1718 Laboratory Results Laboratory Tests Test 01/20/17 05:16 White Blood Count 4.4 TH/MM3 Red Blood Count 3.29 MIL/MM3 Hemoglobin 9.9 GM/DL Hematocrit 29.3 % Mean Corpuscular Volume 89.2 FL Mean Corpuscular Hemoglobin 30.1 PG Mean Corpuscular Hemoglobin 33.8 % Concent Red Cell Distribution Width 17.7 % Platelet Count 131 TH/MM3 Mean Platelet Volume 7.4 FL Neutrophils (%) (Auto) 45.2 % Lymphocytes (%) (Auto) 40.6 % Monocytes (%) (Auto) 13.3 % Eosinophils (%) (Auto) 0.5 % Basophils (%) (Auto) 0.4 % Neutrophils # (Auto) 2.0 TH/MM3 Lymphocytes # (Auto) 1.8 TH/MM3 Monocytes # (Auto) 0.6 TH/MM3 Eosinophils # (Auto) 0.0 TH/MM3 Basophils # (Auto) 0.0 TH/MM3 CBC Comment DIFF FINAL Differential Comment Culture Results Microbiology Date/Time Procedure Status Source Growth 01/17/17 13:00 Rotavirus Antigen - Final Complete Stool Stool NEGATIVE - ROTAVIRUS ANTIGEN IS ABSEN... 01/17/17 13:00 - Final Complete Stool Stool NO ENTERIC PATHOGENS DETECTED BY PCR... 01/17/17 13:00 Cryptosporidium Exam - Final Complete Stool Stool NEGATIVE - NO CRYPTOSPORIDIUM ANTIGEN... 01/17/17 13:00 Giardia Antigen (PHYLLIS) - Final Complete Stool Stool NEGATIVE - NO GIARDIA ANTIGEN DETECTE... Administered Medications Medications (Trade) Dose Ordered Sig/[place] Route PRN Reason Start Time Stop Time Status Last Admin Dose Admin Acetaminophen (Tylenol) 650 mg Q4H PRN PO TEMP > 100.4 01/16/17 18:00 01/17/17 00:17 Nystatin 5 ml 5 ml QID SWISH-SWAL 01/16/17 18:00 01/20/17 09:37 Sodium Chloride (NS 1000 ml Inj) 1,000 ml @ 84 mls/hr [id number] IV 01/16/17 18:00 01/20/17 05:25 Lactobacillus Acidophilus (Lactinex) 1 tab Q12HR PO 01/16/17 21:00 01/20/17 09:37 Dronabinol (Marinol) 5 mg BID@11,16 PO 01/17/17 11:00 01/19/17 17:31 Pantoprazole Sodium (Protonix) 40 mg DAILY PO 01/17/17 09:00 01/20/17 09:37 Heparin Sodium (Porcine) (Heparin Central Flush) 500 units UNSCH IV FLUSH 01/17/17 06:30 01/17/17 09:54 Sodium Chloride (NS Flush) 5 ml UNSCH PRN IV FLUSH FLUSH AFTER USING IV ACCESS 01/17/17 06:30 01/17/17 09:52 Clonidine (Catapres) 0.1 mg Q6H PRN PO SBP>160, DBP>90 01/17/17 14:30 01/19/17 14:26 Loperamide HCl (Imodium) 2 mg UNSCH PRN PO DIARRHEA 01/17/17 15:30 01/18/17 23:28 Dabigatran (Pradaxa) 150 mg BID PO 01/20/17 09:00 01/20/17 09:37 Objective Remarks GENERAL: Elderly female upright in bed in nad SKIN: Warm and dry. HEAD: Normocephalic. EYES: No injection or drainage. NECK: Supple, trachea midline. CARDIOVASCULAR: Regular rate and rhythm RESPIRATORY: Breath sounds equal bilaterally. No accessory muscle use. GASTROINTESTINAL: Abdomen soft, non-tender, nondistended. EXTREMITIES: No cyanosis NEUROLOGICAL: No obvious focal deficit. Awake, alert, and oriented x3. Assessment/Plan Problem List: (1) Colon cancer metastasized to liver Status: Acute Plan: -- Most recently had cycle #10 in the outpatient clinic on 01/10 with Avastin and FOLFOX chemotherapy -- She was noted to have low-grade fever when she returned for Neupogen injection -- No obvious progression of disease based on scans from emergency room. Hx: Patient was diagnosed with metastatic rectal cancer with multiple metastatic lesions in the liver. She also has nodule in the right lung with mediastinal adenopathy consistent with metastatic disease. 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 Most recent imaging has showed a good response to therapy. CEA has decreased from 1700-750. (2) Fever, unknown origin Status: Acute Plan: --Monitor CBC -- Blood cultures show no growth Assessment 76-year-old female with history of metastatic rectal cancer admitted for fevers Plan 1. start Pradaxa 2. clear for discharge 3. follow up in clinic. Attending Statement The exam, history, and the medical decision-making described in the above note were completed with the assistance of the mid-level provider. I reviewed and agree with the findings presented. I attest that I had a [id number] encounter with the patient on the same day, and personally performed and documented my assessment and findings in the medical record. Feeling stronger. Eager to go home. Has been ambulating around the room. Remains afebrile. Hgb stable. Can be d/c from oncology standpoint. Continue pradaxa for 3 months. Nicolette Murphy Jan 20, 2017 12:57 Ulysses Medina MD Jan 20, 2017 13:50
== END 2017-01-20 15:22 | disposition home or self-care (01) | DRG 864 ==
LOC: NEPC 14:56 → NEDH 17:02 → HOCB 22:10 → OBSVTOIN 01-17 14:27
PROVIDERS: ADMIT Hospitalist; ATTEND Hospitalist
PROC: 30233N1 Transfusion of Nonautologous Red Blood Cells into Peripheral Vein, Percutaneous Approach (ICD-10-PCS; principal; 2017-01-18)
DX: R50.9 Fever, unspecified (principal); E87.2 Acidosis; C78.00 Secondary malignant neoplasm of unspecified lung; C78.7 Secondary malignant neoplasm of liver and intrahepatic bile duct; B37.0 Candidal stomatitis; T45.1X5A Adverse effect of antineoplastic and immunosuppressive drugs, initial encounter; I82.621 Acute embolism and thrombosis of deep veins of right upper extremity; C20 Malignant neoplasm of rectum; E86.0 Dehydration; R63.0 Anorexia; D64.9 Anemia, unspecified; K59.00 Constipation, unspecified; F41.9 Anxiety disorder, unspecified; Z87.11 Personal history of peptic ulcer disease; R00.0 Tachycardia, unspecified; Z87.891 Personal history of nicotine dependence; Y92.009 Unspecified place in unspecified non-institutional (private) residence as the place of occurrence of the external cause; R59.0 Localized enlarged lymph nodes; K21.9 Gastro-esophageal reflux disease without esophagitis
CPT/HCPCS: 36430; 71010; 74176; 76937; 80053; 81001; 83605; 83690; 83735; 85007; 85025; 85027; 85610; 85730; 86850; 86900; 86901; 86920; 87040; 87328; 87329; 87425; 87493; 87506; 93005; 93971; 96365; G0378; J0692; J1642; J1650; J2997; J7030; P9016